=== PATIENT | female | born 1940 | race Caucasian/White ===

== ENCOUNTER 2016-08-30 15:44 | Inpatient (IN) | payer MEDICARE, OTHER ==
--- NOTE | ~2016-08-30 | CN ---
Consultation Report [facility] [address] [place]. [address] NAME: TATIANNA NGO : 38 STATUS : DIS IN PAT#: [id number] AGE: 75 ADM/REG DATE : 08/31/16 MR#: [id number] REPORT SERV DATE: 09/01/16 DICTATED BY: VELMA MORENO DATE: 09/01/16 REPORT STATUS : Draft TRANSCRIBED BY: MODL DATE: 09/01/16 CONSULTATION DATE OF CONSULTATION: 09/01/2016 CHIEF COMPLAINT: Chest pain, decreased exercise tolerance, and fatigue HISTORY OF PRESENT ILLNESS: This is a very pleasant 75-year-old female, who presented to the emergency room on 08/30/2016 with chest discomfort while performing physical therapy regarding her neck pain. Symptoms occurred only that day, but states that she has had progressive fatigue over the past month. She had a nuclear stress test on the same day that was abnormal. She ended up having coronary arteriogram on 09/01/2016 which revealed severe bifurcation stenosis involving the first diagonal and proximal LAD, uzoduqvs-vz-bmgoil distal LAD stenosis, yfrovvru-gi-npipva ostial and proximal circumflex stenosis, and cpkf-it-gdwsjbvl RCA stenosis. Her LMCA showed 30% stenosis, proximal LAD 25 stenosis, with first diagonal lesion of 90% stenosis, proximal LAD 85% stenosis, mid LAD with 60% stenosis, left circumflex lesion on proximal at 60%, 40% left first obtuse marginal and 60% lesion on the proximal circumflex. There was 45% stenosis on the proximal RCA. The patient states that her fatigue is mainly with activity when she is doing her house work. She does notice that she has to take frequent rest breaks throughout the day. She states that she is not having any active chest pain, palpitations, dyspnea with rest, orthopnea, or unstable angina. She does have some mild dyspnea on exertion. PAST MEDICAL HISTORY: She has been diabetic for 10 years, well controlled Metformin with her most recent A1C at 5.5%; hypertension; hyperlipidemia; childhood asthma; and frequent UTIs. PAST SURGICAL HISTORY: Includes two C-sections, appendectomy, lumbar spine surgery, cataract surgery, and tonsillectomy. SOCIAL HISTORY: She is and retired teacher. She used to smoke but quit in 1980. She smoked for approximately 10 years. She does use alcohol on occasion. She denies illicit drug use. FAMILY HISTORY: Her mother at age 100 and had a history of hypertension and breast cancer. Her father in his 60s due to pesticide toxicity. She has no siblings. ALLERGIES: SHE IS ALLERGIC TO SULFA. MEDICATIONS: Home medications include: 1. Amlodipine 5 mg once daily. 2. Atenolol 100 mg daily. 3. Lasix 20 mg daily. 4. Losartan 50 mg daily. 5. Metformin 500 mg daily. Consultation Report [address] [place]. [address] NAME: TATIANNA NGO : [id number] STATUS : DIS IN PAT#: [id number] AGE: 75 ADM/REG DATE : 08/31/16 MR#: [id number] REPORT SERV DATE: 09/01/16 DICTATED BY: VELMA MORENO DATE: 09/01/16 REPORT STATUS : Draft TRANSCRIBED BY: WALT DATE: 09/01/16 6. Prilosec 20 mg. 7. Potassium 20 mEq. 8. Crestor 5 mg daily. REVIEW OF SYSTEMS: GENERAL: She denies any recent weight loss or changes in appetite, fever, chills, or night sweats. SKIN: No rashes or itching. HEAD: No trauma or visual changes. EYES: She does wear glasses. EARS: No hearing loss, discharge, or tenderness. NOSE: No rhinorrhea, allergies, epistaxis. MOUTH: No bleeding, sores, hoarseness, or sore throat. CARDIAC: No palpitations, paroxysmal nocturnal dyspnea, orthopnea, murmur, or unstable angina. RESPIRATORY: No shortness of breath except on exertion. No emphysema, bronchitis, or recent episodes of pneumonia. GI: No previous symptoms of nausea, vomiting, diarrhea, abdominal pain or appetite changes. URINARY: No complaints of incontinence, hematuria, or dysuria. VASCULAR: She denies edema, claudication, or varicose veins. MUSCULOSKELETAL: She does have limited range of motion in her neck. No assistive devices, tremors, or recent falls. HEMATOLOGY: No bruising or bleeding. ENDOCRINE: No polydipsia, polyphagia, or polyuria. She does have a history of diabetes. PSYCHIATRIC: She denies anxiety or depression. PHYSICAL EXAMINATION: GENERAL: She is a very pleasant 75-year-old white female who appears to be in good health with no evidence of poor hygiene, or failure to thrive. VITAL SIGNS: She has sinus bradycardia at a rate of 53, blood pressure 142/76, temperature 98.7, respiratory rate 16. She is 97% on room air. She weighs 57 kg and is 5 feet tall. SKIN: There are no evidences of any scars, rashes, bruises, and/or ulcerations. HEENT: Head is atraumatic and normocephalic. She has round, equal, and reactive pupils with no discharge or visual deficits. She does wear glasses. Her ears are symmetrical with no tenderness, discharge, or inflammation. Nose is at midline with no evidence of reddened or erythemic mucosa. She does not have any sinus tenderness. She does not have a deviated septum. Mouth, she does not appear to have missing teeth, ulcerations. She had pink moist mucosa. NECK: There is no tracheal deviation or thyroid mass. HEART: She has sinus bradycardia, regular rate and rhythm with no evidence of murmurs, gallops, clicks, or precordial movements. LUNGS: Clear to auscultation with equal rise of the chest and is symmetrical. ABDOMEN: She has active bowel sounds, her abdomen is soft, nontender with no evidence of masses or hepatic or splenic enlargement. MUSCULOSKELETAL: She does not appear to have any limited range of motion other than her neck Consultation Report [place] [id number] [facility] [place]. [address] NAME: TATIANNA NGO : [id number] STATUS : DIS IN PAT#: [id number] AGE: 75 ADM/REG DATE : 08/31/16 MR#: [id number] REPORT SERV DATE: 09/01/16 DICTATED BY: VELMA MORENO DATE: 09/01/16 REPORT STATUS : Draft TRANSCRIBED BY: MODL DATE: 09/01/16 due to pain and degenerative disk. There is no muscle atrophy, there is no unsteady gait, and there is no joint redness, swelling, or tenderness noted. VASCULAR: She does not have any pedal edema. She has +2 bilateral pedal pulses. She does not have carotid bruit. LYMPHATIC: There is no evidence of lymph node enlargement, tenderness, or immobility. NEUROLOGICAL: Cranial nerves II through XII were assessed and intact. LABORATORY DATA: Her labs obtained today show a white blood cell count of 12.3, hemoglobin 10.9, hematocrit 32.7, platelet count 287. Her BMP shows sodium of 138, potassium 3.9, chloride 106, CO2 of 25, BUN 13, creatinine 0.7, and glucose 98. Her A1C is 5.5%. She had a carotid ultrasound today showing category 1 which is less than 50% bilateral carotid artery stenosis. She also had an echocardiogram today that showed normal LV size and systolic function. Estimated ejection fraction 55%. No regional wall motion abnormality identified. Mild diastolic dysfunction. Normal RV size and systolic function. Mild aortic valve stenosis with mean pressure grading of 10 mmHg. ASSESSMENT AND PLAN: 1. Coronary artery disease. I spent time with both the patient and the and explained the indications for open sternotomy, coronary artery bypass grafting. I explained the postoperative and intraoperative risk of the procedures which include stroke, CA, atrial fibrillation, wound infection, pneumonia, and blood clots, and interventions that are taken to prevent these complications. She is not on any aspirin or blood thinners at this time. I will discuss her case with Dr. Moreno, but plan would be for her to be able to go home today with the understanding that she is to return to the hospital if she developed unstable angina or worsening shortness of breath. Plan would be for her to have a CAB with [facility], and [facility] on Sunday09/06/[address] Velma Moreno. The patient will have her preop testing and assessment done while in she is in the hospital today. Her STS score is estimated at 13.7%. 2. Hypertension, the patient is to continue her home medications as prescribed. She will need to hold her losartan 24 hours prior to the procedure. These instructions will be on her discharge paperwork. 3. Diabetes, A1C is 5.5% and she demonstrates of adequate control of her diabetes. She understands that she will to hold her Glucophage or metformin 48 hours prior to her procedure. 4. Hyperlipidemia. She will continue her Crestor 5 mg daily as prescribed. We appreciate the consultation from Cardiology to participate in the care of this patient. DICTATED BY: YAMILETH Wallace/WALT Velma Moreno M.D. Consultation Report [facility] [address] [place]. [address] NAME: TATIANNA NGO : [id number] STATUS : DIS IN PAT#: [id number] AGE: 75 ADM/REG DATE : 08/31/16 MR#: [id number] REPORT SERV DATE: 09/01/16 DICTATED BY: VELMA MORENO DATE: 09/01/16 REPORT STATUS : Draft TRANSCRIBED BY: MODL DATE: 09/01/16 / [id number] CC: Samuel Waddell NP
--- NOTE | ~2016-08-30 | HP ---
History And Physical [place] [id number] [facility] [place]. [address] NAME: TATIANNA NGO : [id number] STATUS : ADM Pito PAT#: [id number] AGE: 75 ADM/REG DATE : 08/30/16 MR#: [id number] REPORT SERV DATE: 08/30/16 DICTATED BY: MO PADILLA DATE: 08/30/16 REPORT STATUS : Draft TRANSCRIBED BY: MODL DATE: 08/30/16 DATE OF ADMISSION: 08/30/2016 IDENTIFYING DATA: A 75-year-old white female, whose PCP is nurse practitioner, Flor Peck. CHIEF COMPLAINT: Chest pain. HISTORY OF PRESENT ILLNESS: This history of present illness is obtained by talking directly with the patient as well as with her at bedside, and I spoke on the phone with [facility] and I reviewed the records that they sent with her. The patient was in physical therapy for neck pain. She developed some anterior chest pain. She characterizes it as both sharp and pressure like. It seemed to increase with physical movement. It radiated to her neck. It came on while doing her exercises. It did not stop with resting. It lasted more than 15 minutes, but close to 15 minutes. No associated nausea or shortness of breath. She states about four years ago she had some chest pain, went to the same the ER, they did an evaluation, told her they thought it was gas. She was hospitalized at [facility] on 05/19/2016 through 05/20/2016 for some chest discomfort and hypertension. At that time, they did an echocardiogram showing mild aortic stenosis and did some cardiac enzymes, chest x-ray, and a CT of her brain. She also states she went to an emergency room at [facility] some time this year for some chest pain as well. Also when she went to [facility] Emergency Room, it was also related to a temporal headache. REVIEW OF SYSTEMS: She states she has been having back and neck pain. She felt lightheaded in physical therapy today. She has been a bit unsteady on her feet. She has had three falls over the last four years. No serious injuries. She states she had a UTI 10 days ago. She was given Bactrim. She developed itching and blistering on her lips, took Benadryl. She also had dizziness and vertigo at that time. She denies any current fever, sore throat, cough, abdominal pain, nausea, vomiting, diarrhea, rectal bleeding, melena, dysuria, peripheral edema, rash, headaches, anorexia, or weight change. ALLERGIES: SHE IS ALLERGIC TO SULFA, BUT NO OTHER MEDICINE SHE RECALLS. PAST MEDICAL HISTORY: She denies any history of COPD, heart disease, stroke, seizure, peptic ulcer or biliary tract disease, liver disease, chronic kidney disease, kidney stones, thyroid disease, cancer, pulmonary embolism, or deep vein thrombosis. She has had childhood asthma and adult allergies. She has had hypertension and hyperlipidemia. She has also had diabetes mellitus type 2. The diabetes, she has had for about 15 years. She does not have any significant peripheral neuropathy. She has had frequent UTIs. She has had spinal stenosis. She has some dementia, on medical therapy. She has a history of reflux. She had previous sleep apnea. She wore CPAP, but she lost weight down from 190 to 115 pounds and states they told her she did not need to wear it History And Physical [address] [address] NAME: TATIANNA NGO : [id number] STATUS : ADM Pito PAT#: [id number] AGE: 75 ADM/REG DATE : 08/30/16 MR#: [id number] REPORT SERV DATE: 08/30/16 DICTATED BY: MO PADILLA DATE: 08/30/16 REPORT STATUS : Draft TRANSCRIBED BY: WALT DATE: 08/30/16 after that. HOME MEDICATIONS: Lasix 20 mg daily, atenolol 100 mg daily, Norvasc 5 mg daily (she has not had her atenolol or amlodipine since yesterday), Aricept 10 mg at bedtime, nitrofurantoin 100 mg b.i.d., metformin 500 mg daily at bedtime, Crestor 5 mg daily, losartan 50 mg daily, aspirin 81 mg daily, and potassium 20 mEq daily. PAST SURGICAL HISTORY: She has had two C sections, one of them included an appendectomy. She has had a lumbar spine surgery. She had tonsillectomy and cataract surgery. SOCIAL HISTORY: She is . 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 She quit smoking cigarettes in 1980. She smoked a pack per day. She drinks only a very occasional glass of wine. She lives with her . She walks without any assistive device. FAMILY HISTORY: Mother at 100 years of age, had hypertension and breast cancer. Father in his 60s and they think he might have had malathion toxicity from spraying a pesticide. She is an only child. DIAGNOSTIC DATA: EKG done at 0938 hours today at [facility] reveals sinus bradycardia, otherwise, normal per my interpretation. Another EKG at 0945 hours has a baseline motion artifact, but otherwise, the same with some sinus bradycardia. Troponin drawn at 0958 hours at [facility] less than 0.02, [facility]. Sodium 138, potassium 3.9, chloride 100, CO2 is 30, BUN 11, and creatinine 0.7. The rest of the CMP is normal. Lipase was 108. Chest x-ray interpreted by their radiologist as normal other than some mild aortic calcification and tortuosity. White count 10.8, hemoglobin 12.6, and platelets 327,000. Echocardiogram report from 05/19/2016 showed normal left ventricular size and ejection fraction of 75%, left atrium at 3.8 cm, and mild aortic stenosis. PHYSICAL EXAMINATION: VITAL SIGNS: Temp is 97.7, pulse 55, respirations 18, blood pressure 160/70, and O2 saturation is 100% on room air. GENERAL: A well-developed, older female, who at this time appears in no acute distress. HEENT: Head is atraumatic. Pupils are equal, round, and reactive to light. Extraocular motions are intact. No scleral icterus noted. Ear canals externally unremarkable. No inflammatory changes and normal hearing bilaterally. Nose, noninflamed externally. Septum midline. Nares patent. Mouth is moist. Good gag. No redness of the throat, gums, or lips. NECK: Supple. No lymph node or thyroid enlargement. The carotids have good pulses. No bruits. LUNGS: Clear. Good air flow. No wheezes. No rhonchi. Normal respiratory effort. HEART: Regular, but bradycardic. No murmur, gallop, click, or rub. ABDOMEN: Bowel sounds positive. Soft, nondistended, and nontender. No masses. No organomegaly. EXTREMITIES: Warm. Good pulses. No clubbing. No cyanosis. No edema. No actively inflamed skin or joints. She has onychomycosis of her toenails. History And Physical [address] [place]. [address] NAME: TATIANNA NGO : [id number] STATUS : ADM Pito PAT#: [id number] AGE: 75 ADM/REG DATE : 08/30/16 MR#: [id number] REPORT SERV DATE: 08/30/16 DICTATED BY: MO PADILLA DATE: 08/30/16 REPORT STATUS : Draft TRANSCRIBED BY: WALT DATE: 08/30/16 NEUROLOGIC: She is alert. She is oriented. She is cooperative. She has some definite deficits in her short-term memory. Her motor strength is 4/5 in all four extremities. No Babinski. No clonus noted. Cranial nerves II through XII are grossly normal. ASSESSMENT: 1. Chest pain. Differential diagnosis:. a. Coronary artery disease. b. Pulmonary embolism. c. Reflux. d. Neoplasm, least likely. 2. Hypertension. 3. Diabetes mellitus type 2 for 15 years. 4. Mild aortic stenosis. 5. Hyperlipidemia. 6. Frequent urinary tract infections. 7. Chronic spine pain. 8. Senile dementia. 9. History of previous sleep apnea, now off CPAP after weight loss. 10.History of reflux. PLAN: 1. Observation on telemetry. 2. Get followup troponin. We will also check a D-dimer. If it is elevated, we will do a CTA of the chest. If the D-dimer and the troponins are normal, then we will get a nuclear stress test. The patient and updated at the bedside at this time. RSG/MODL Mo Padilla M.D. / [id number] CC: Samuel Waddell
--- NOTE | ~2016-08-30 | DS ---
Discharge Summary [facility] [address] [place]. [address] NAME: TATIANNA NGO : [id number] STATUS : ADM Pito PAT#: [id number] AGE: 75 ADM/REG DATE : 08/30/16 MR#: [id number] REPORT SERV DATE: 08/31/16 DICTATED BY: MO PADILLA DATE: 08/31/16 REPORT STATUS : Draft TRANSCRIBED BY: MODL DATE: 08/31/16 ADMISSION DATE: 08/30/2016 DISCHARGE DATE: 08/31/2016 DISCHARGE DIAGNOSES: 1. Chest pain. 2. Hypertension. 3. Diabetes mellitus type 2 for 15 years with current A1c 5.5%. 4. Mild aortic stenosis. 5. Frequent urinary tract infections. 6. Chronic spine pain. 7. Mild senile dementia. 8. History of reflux. 9. Previous obstructive sleep apnea, resolved with weight loss. HISTORY: The patient was at physical therapy because of her neck pain. While there were experienced anterior chest pain, somewhat sharp, somewhat pressure-like, lasted 15 minutes. No associated nausea or shortness of breath. She was taken to the emergency room there at [facility], and they did a chest x-ray that was unremarkable. They did an EKG that was unremarkable. Her two sets of troponins that were unremarkable, but they wanted her to where she can get a nuclear stress, so she asked to be referred here and we agreed for her transfer. Here the patient had EKG with only mild sinus bradycardia. Her cardiac enzymes were normal. Her D-dimer was normal. She had no further chest pain. She is scheduled for a nuclear stress test this morning. If those results were normal she will go home and follow up with her PCP within the next week. DISCHARGE MEDICATIONS: 1. Aspirin 81 mg daily. 2. Aricept 10 mg at bedtime. 3. Losartan 50 mg daily. 4. Nitrofurantoin 100 mg b.i.d. (she was already on this). 5. Tylenol 650 mg q.6 hours p.r.n. pain. 6. Amlodipine 5 mg daily. 7. Tenormin 100 mg daily. 8. Metformin 500 mg daily. 9. Crestor 5 mg daily. 10.Omeprazole 20 mg daily. 11.KCl 20 mEq daily. 12.Furosemide 20 mg daily. DICTATED BY: Mo Padilla M.D. Discharge Summary [facility] [address] [address] NAME: TATIANNA NGO : [id number] STATUS : ADM Pito PAT#: [id number] AGE: 75 ADM/REG DATE : 08/30/16 MR#: [id number] REPORT SERV DATE: 08/31/16 DICTATED BY: MO PADILLA DATE: 08/31/16 REPORT STATUS : Draft TRANSCRIBED BY: WALT DATE: 08/31/16 RS/WALT Mo Padilla M.D. / [id number] CC: Samuel Waddell NP
--- NOTE | ~2016-08-30 | DS ---
Discharge Summary [facility] [address] [place]. [address] NAME: TATIANNA NGO : 38 STATUS : DIS IN PAT#: [id number] AGE: 75 ADM/REG DATE : 08/31/16 MR#: [id number] REPORT SERV DATE: 09/04/16 DICTATED BY: MO PADILLA DATE: 09/02/16 REPORT STATUS : Draft TRANSCRIBED BY: MODL DATE: 09/02/16 ADMISSION DATE: 08/30/2016 DISCHARGE DATE: 09/01/2016 DISCHARGE DIAGNOSES: 1. Unstable angina pectoris. 2. Severe multivessel coronary artery disease. 3. Hypertension. 4. Diabetes mellitus type 2 with A1c 5.5%. 5. Mild aortic stenosis. 6. Previous frequent urinary tract infections. 7. Chronic spine pain. 8. Mild senile dementia. 9. Gastroesophageal reflux disease. 10.Previous obstructive sleep apnea, resolved with weight loss. HISTORY: This patient was at physical therapy because of her neck pain, had anterior chest pain that was sharp and pressure-like, lasting 15 minutes. No associated nausea or shortness of breath. She went to the emergency room there at [facility] where a chest x- ray was unremarkable, an EKG was unremarkable, and two sets of troponins were normal. She was referred to our inpatient facility here for nuclear stress test and further cardiac evaluation. The patient's EKG had only mild sinus bradycardia. Her cardiac enzymes were normal. Her D- dimer was normal. She had no further chest pain initially and went for a nuclear stress test. The nuclear stress test images were normal, but she had chest pain during the exercise so because of this and her risk factors, I asked Cardiology to see the patient, and Dr. Andrea Miranda of [facility] saw the patient and agreed with her risk factors that she should have a cardiac catheterization. The patient underwent a heart catheterization on 08/31/2016 showing severe multivessel disease with preserved left ventricular ejection fraction, and she was referred to cardiothoracic surgeon, Dr. Moreno, for evaluation for coronary artery bypass grafting. Dr. Moreno team met with her on 09/01/2016. They did feel that she was a good candidate for coronary artery bypass grafting but since she was stable and it was Sunday and they were not going to plan for her surgery within the next few days, they made a plan with her to be discharged home to come back on 09/06/[address] Moreno to do a coronary artery bypass with transesophageal echo. They are recommending that she hold her losartan for 24 hours prior to the procedure and to hold her metformin for 48 hours prior to the procedure. DISCHARGE MEDICATIONS: 1. Aspirin 81 mg daily. 2. Aricept 10 mg daily. 3. Losartan 50 mg daily, but she will hold it 24 hours prior to procedure. 4. Nitrofurantoin 100 mg b.i.d. She was on this for a urinary tract infection Discharge Summary [place] [id number] [facility] [place]. [address] NAME: TATIANNA NGO : [id number] STATUS : DIS IN PAT#: [id number] AGE: 75 ADM/REG DATE : 08/31/16 MR#: [id number] REPORT SERV DATE: 09/04/16 DICTATED BY: OM PADILLA DATE: 09/02/16 REPORT STATUS : Draft TRANSCRIBED BY: WALT DATE: 09/02/16 prehospitalization. 5. Tylenol 650 q.6 hours p.r.n. pain or fever. 6. Amlodipine 5 mg daily. 7. Tenormin 100 mg daily. 8. Metformin 500 mg daily, but she will hold it 48 hours pre-surgery. 9. Crestor 5 mg daily. 10.Omeprazole 20 mg daily. 11.Furosemide 20 mg daily. 12.KCl 20 mEq daily. DICTATED BY: Mo Padilla M.D. RSJeana/WALT Mo Padilla M.D. / [id number] CC: Samuel Waddell M.D. Daniel Moreno M.D. LANDON CRISTINA NP
--- NOTE | ~2016-08-30 | CN ---
Consultation Report [facility] [address] [place]. [address] NAME: TATIANNA FLORES : 38 STATUS : ADM Pito PAT#: [id number] AGE: 75 ADM/REG DATE : 08/30/16 MR#: [id number] REPORT SERV DATE: 08/31/16 DICTATED BY: ANDREA MIRANDA DATE: 08/31/16 REPORT STATUS : Draft TRANSCRIBED BY: MODEmily DATE: 08/31/16 CONSULTATION DATE OF CONSULTATION: REASON FOR CONSULTATION: Mrs. Tatianna Flores is a 75-year-old female, who is referred for abnormal stress test. HISTORY OF PRESENT ILLNESS: Mrs. Flores was in physical therapy at [facility] for neck discomfort. As she tried to do her activity, she developed a pressure-like sensation that seemed to be a crescendo with continuing exercise and became less impressive with rest. It lasted close to 30 minutes. There were no associated radiation of the pain, nausea, vomiting, diaphoresis, or shortness of breath. This abated. She came here and showed no changes under EKG. Cardiac enzymes were negative, but upon doing a treadmill, the discomfort was reproduced. REVIEW OF SYSTEMS: She is apparently hospitalized at [facility], 05/19/2016, for chest discomfort. At that time, workup was negative. She did not have an arteriogram at that time. She has not had this chest pain before. She has not had palpitations, syncope, presyncope, or lower extremity edema. PAST MEDICAL HISTORY: 1. Type 2 diabetes for approximately 10 years. 2. She discontinued cigarette smoking after 10 years of smoking in 1980. 3. Hypertension for 10 to 12 years. 4. Hypercholesterolemia for 10 to 12 years, on atorvastatin 10 mg. SOCIAL HISTORY: She is . She does not smoke. She does occasional alcohol. She primarily active with her housework. FAMILY HISTORY: Negative for early heart disease. PHYSICAL EXAMINATION: VITAL SIGNS: Blood pressure is 161/71, pulse 77, and she is afebrile. GENERAL: Resting comfortably, nutritional status appears adequate. EYES: PERRLA. LUNGS: No labored use of accessory muscles. Without rales or wheezes. COR: PMI is not displaced. No thrills or heaves. NL S1 and S2. No S3, murmur, click or rub. PULSES: Carotids without bruits. ABD: +BS, nontender. EXT: No cyanosis, clubbing or edema. SKIN: No petechiae. Consultation Report [facility] [id number] [place]. [address] NAME: TATIANNA FLORES : 38 STATUS : ADM Pito PAT#: [id number] AGE: 75 ADM/REG DATE : 08/30/16 MR#: [id number] REPORT SERV DATE: 08/31/16 DICTATED BY: ANDREA MIRANDA DATE: 08/31/16 REPORT STATUS : Draft TRANSCRIBED BY: WALT DATE: 08/31/16 NEURO: Alert and oriented. Does not appear anxious or depressed. LABORATORY EVALUATION: 1. EKG shows sinus rhythm without acute changes. 2. Renal function is normal at 0.8. 3. Troponins are negative. 4. Ward protocol stage II did reproduce the chest discomfort, but showed no EKG changes or imaging changes. It was read as intermediate. ASSESSMENT: Intermediate stress test with significant risk factors of diabetes, hypertension, cigarette smoking, and hypercholesterolemia with intermediate risk stress test. We will proceed with cardiac catheterization. SHANELL/WALT Andrea Miranda M.D. / [id number] CC: Samuel Waddell NP
[2016-08-30] MEDS ORDERED: ARICEPT10 PO (21:27)
[2016-08-30] MEDS ORDERED: ATEN100 PO (21:27)
[2016-08-30] MEDS ORDERED: NORV5 PO (21:27)
[2016-08-30] MEDS ORDERED: COZ50 PO (21:28)
[2016-08-30] MEDS ORDERED: GLUCPH PO (21:28)
[2016-08-30] MEDS ORDERED: BACDS PO (21:29)
[2016-08-30] MEDS ORDERED: CRESTOR5 MG PO (21:29)
[2016-08-30] MEDS ORDERED: KLOR-CON M2020 MEQ PO (21:30)
[2016-08-30] MEDS ORDERED: PRILO PO (21:30)
[2016-08-30] MEDS ORDERED: L20 PO (21:31)
[2016-08-31 05:07] LABS: BUN (BLOOD UREA NITROGEN) 18 MG/DL (6-23); CALCIUM, SERUM 8.9 MG/DL (8.5-10.4); CHLORIDE, SERUM 102 MMOL/L (96-112); CO2 (CARBON DIOXIDE) 30 MMOL/L (24-34); CREATININE 0.81 MG/DL (0.55-1.02); GFR AFRICAN AMERICAN 81 ML/MIN (>=60); GFR NON AFRICAN AMERICAN 70 ML/MIN (>=60); GLUCOSE, SERUM 94 MG/DL (60-99); POTASSIUM, SERUM 3.6 MMOL/L (3.5-5.3); SODIUM, SERUM 137 MMOL/L (135-148); TROPONIN I <0.02 NG/ML (<0.05)
[2016-08-31 05:19] LABS: BASOPHILS 0.7 %; BASOPHILS ABSOLUTE 0.06 10/3/uL (0.0-0.16); EOSINOPHILS ABSOLUTE 1.28 10/3/uL (0.0-0.53); HEMATOCRIT 36.4 % (36.0-48.0); HEMOGLOBIN 12.5 g/dL (12.0-16.0); IMMATURE GRANULOCYTES 0.4 %; IMMATURE GRANULOCYTES ABSOLUTE 0.03 10/3/uL (0.0-0.11); LYMPHOCYTES 21.4 %; LYMPHOCYTES ABSOLUTE 1.83 10/3/uL (0.67-4.30); MEAN CORPUS HGB CONC 34.3 g/dL (32.0-36.0); MEAN CORPUSCULAR HEMOGLOB 30.2 pg (26.0-34.0); MEAN CORPUSCULAR VOLUME 87.9 fL (80-100); MEAN PLATELET VOLUME 9.4 fL (9.2-13.0); MONOCYTES 7.5 %; MONOCYTES ABSOLUTE 0.64 10/3/uL (0.21-1.20); NEUTROPHILS ABSOLUTE 4.71 10/3/uL (2.02-8.40); PLATELET COUNT 292 10/3/uL (150-400); RBC DISTRIBUTION WIDTH 13.1 % (12.0-16.0); RED CELL COUNT 4.14 10/6/uL (4.0-5.6); WHITE BLOOD CELLS 8.6 10/3/uL (4.5-10.5)
[2016-08-31 05:23] LABS: MANUAL DIFF NO %
[2016-08-31 14:38] LABS: CHOL/HDL RATIO(NOT ORDER) 3.3 (0-5); CHOLESTEROL 190 MG/DL (< 200); HDL CHOLESTEROL 58 MG/DL (> 49); LDL CHOLESTEROL 74 MG/DL (< 130); NON-HDL CHOLESTEROL 132 MG/DL (< 160); TRIGLYCERIDE 293 MG/DL (< 150)
[2016-09-01 05:05] LABS: CALCIUM, SERUM 8.2 MG/DL (8.5-10.4); CHLORIDE, SERUM 106 MMOL/L (96-112); CREATININE 0.76 MG/DL (0.55-1.02); GFR AFRICAN AMERICAN 88 ML/MIN (>=60); GFR NON AFRICAN AMERICAN 76 ML/MIN (>=60); GLUCOSE, SERUM 98 MG/DL (60-99); POTASSIUM, SERUM 3.9 MMOL/L (3.5-5.3); SODIUM, SERUM 138 MMOL/L (135-148)
[2016-09-01 05:07] LABS: BUN (BLOOD UREA NITROGEN) 13 MG/DL (6-23); CO2 (CARBON DIOXIDE) 25 MMOL/L (24-34)
[2016-09-01 05:08] LABS: BASOPHILS 0.2 %; BASOPHILS ABSOLUTE 0.03 10/3/uL (0.0-0.16); EOSINOPHILS ABSOLUTE 0.98 10/3/uL (0.0-0.53); HEMATOCRIT 32.7 % (36.0-48.0); HEMOGLOBIN 10.9 g/dL (12.0-16.0); IMMATURE GRANULOCYTES 0.2 %; IMMATURE GRANULOCYTES ABSOLUTE 0.03 10/3/uL (0.0-0.11); LYMPHOCYTES 8.1 %; MANUAL DIFF NO %; MEAN CORPUS HGB CONC 33.3 g/dL (32.0-36.0); MEAN CORPUSCULAR HEMOGLOB 29.4 pg (26.0-34.0); MEAN CORPUSCULAR VOLUME 88.1 fL (80-100); MEAN PLATELET VOLUME 9.2 fL (9.2-13.0); MONOCYTES 6.1 %; MONOCYTES ABSOLUTE 0.75 10/3/uL (0.21-1.20); NEUTROPHILS 77.4 %; NEUTROPHILS ABSOLUTE 9.48 10/3/uL (2.02-8.40); PLATELET COUNT 287 10/3/uL (150-400); RBC DISTRIBUTION WIDTH 13.4 % (12.0-16.0); RED CELL COUNT 3.71 10/6/uL (4.0-5.6); WHITE BLOOD CELLS 12.3 10/3/uL (4.5-10.5)
[2016-09-01] MEDS ORDERED: ARICEPT10 PO (14:40)
[2016-09-01] MEDS ORDERED: MACROBID PO (14:40)
[2016-09-04] MEDS ORDERED: MULTIPLE VIT PO (16:50)
[2016-09-04] MEDS ORDERED: [UNRECOGNIZED DRUG - OTHER] PO (16:51)
[2016-09-04] MEDS ORDERED: ASAB PO (16:53)
[2016-09-04] MEDS ORDERED: NTG150 SL (16:53)
== END 2016-09-01 15:48 | disposition home or self-care (01) | DRG 287 ==
LOC: CDU1 15:44 → CDU2 15:47 → 5NO 09-01 06:30
PROVIDERS: Hospitalist
PROC: 4A023N7 Measurement of Cardiac Sampling and Pressure, Left Heart, Percutaneous Approach (ICD-10-PCS; principal; 2016-08-31)
PROC: B2111ZZ Fluoroscopy of Multiple Coronary Arteries using Low Osmolar Contrast (ICD-10-PCS; 2016-08-31)
PROC: B2151ZZ Fluoroscopy of Left Heart using Low Osmolar Contrast (ICD-10-PCS; 2016-08-31)
DX: I25.110 Atherosclerotic heart disease of native coronary artery with unstable angina pectoris (principal); F03.90 Unspecified dementia, unspecified severity, without behavioral disturbance, psychotic disturbance, mood disturbance, and anxiety; E11.9 Type 2 diabetes mellitus without complications; I10 Essential (primary) hypertension; I35.0 Nonrheumatic aortic (valve) stenosis; Z87.440 Personal history of urinary (tract) infections; K21.9 Gastro-esophageal reflux disease without esophagitis; E78.00 Pure hypercholesterolemia, unspecified; Z79.84 Long term (current) use of oral hypoglycemic drugs
CPT/HCPCS: 78452; 80048; 80061; 82962; 83036; 83735; 84484; 85025; 85379; 93005; 93017; 93306; 93458; 93880; 99152; 99153; A9270-GY; A9502; C1769; C1887; C1894; J0360; J2250; J2405; J3010; Q9967

== ENCOUNTER 2016-09-06 05:53 | Inpatient (IN) | payer MEDICARE, OTHER ==
[2016-09-05 15:33] LABS: BASOPHILS 0.7 %; BASOPHILS ABSOLUTE 0.09 10/3/uL (0.0-0.16); EOSINOPHILS 9.4 %; HEMATOCRIT 37.8 % (36.0-48.0); HEMOGLOBIN 12.5 g/dL (12.0-16.0); IMMATURE GRANULOCYTES 0.2 %; IMMATURE GRANULOCYTES ABSOLUTE 0.03 10/3/uL (0.0-0.11); LYMPHOCYTES 11.8 %; MEAN CORPUS HGB CONC 33.1 g/dL (32.0-36.0); MEAN CORPUSCULAR HEMOGLOB 29.3 pg (26.0-34.0); MEAN CORPUSCULAR VOLUME 88.5 fL (80-100); MEAN PLATELET VOLUME 9.5 fL (9.2-13.0); MONOCYTES 5.8 %; MONOCYTES ABSOLUTE 0.74 10/3/uL (0.21-1.20); NEUTROPHILS 72.1 %; NEUTROPHILS ABSOLUTE 9.17 10/3/uL (2.02-8.40); PLATELET COUNT 335 10/3/uL (150-400); RBC DISTRIBUTION WIDTH 13.1 % (12.0-16.0); RED CELL COUNT 4.27 10/6/uL (4.0-5.6); WHITE BLOOD CELLS 12.7 10/3/uL (4.5-10.5)
[2016-09-05 15:34] LABS: MANUAL DIFF NO %
[2016-09-05 15:40] LABS: INTERNATIONAL NORMAL RATI 1.1 UNITS (-); PROTIME (NOT ORD) 13.8 SEC (12.0-14.5)
[2016-09-05 17:01] LABS: % IRON SAT 9 % (20-50); ALBUMIN 3.7 G/DL (3.5-5.0); ALKALINE PHOSPHATASE 77 U/L (45-117); CHLORIDE, SERUM 100 MMOL/L (96-112); CO2 (CARBON DIOXIDE) 27 MMOL/L (24-34); GFR AFRICAN AMERICAN 71 ML/MIN (>=60); GFR NON AFRICAN AMERICAN 62 ML/MIN (>=60); GLOBULIN 3.8 G/DL (2.5-4.1); GLUCOSE, SERUM 105 MG/DL (60-99); IRON BINDING CAPACITY 370 MCG/DL (225-410); IRON, SERUM 35 MCG/DL (35-150); POTASSIUM, SERUM 3.6 MMOL/L (3.5-5.3); SGOT(AST) 15 U/L (5-40); SGPT(ALT) 21 U/L (5-65); SODIUM, SERUM 138 MMOL/L (135-148); TOTAL BILIRUBIN 0.6 MG/DL (0-1.2); TOTAL PROTEIN 7.5 G/DL (6.0-8.5)
[2016-09-05 17:02] LABS: BUN (BLOOD UREA NITROGEN) 9 MG/DL (6-23)
--- NOTE | ~2016-09-06 | OP ---
Record Of Operation [facility] [address] [place]. [address] NAME: TATIANNA NGO : 38 STATUS : DIS IN PAT#: [id number] AGE: 75 ADM/REG DATE : 09/06/16 MR#: [id number] REPORT SERV DATE: 09/11/16 DICTATED BY: VELMA MORENO DATE: 09/07/16 REPORT STATUS : Draft TRANSCRIBED BY: MODL DATE: 09/07/16 DATE OF PROCEDURE: 09/06/2016 PREOPERATIVE DIAGNOSES: 1. Coronary artery disease with angina. 2. Type 2 ejv-ngpphlg-mmgskwsfd diabetes mellitus. 3. Hypertension. 4. Hyperlipidemia. 5. Obesity. POSTOPERATIVE DIAGNOSES: 1. Coronary artery disease with angina. 2. Type 2 tcy-qzaecjg-prmlyldnn diabetes mellitus. 3. Hypertension. 4. Hyperlipidemia. 5. Obesity. PROCEDURES PERFORMED: 1. Coronary artery bypass grafting x4, left internal mammary artery placed to the left anterior descending, reverse saphenous vein graft placed to the first diagonal, reverse saphenous vein graft placed to the first obtuse marginal, reverse saphenous vein graft placed to the posterior descending artery. 2. Endoscopic vein harvest to saphenous vein from the right leg. 3. Transesophageal echocardiography. ASSISTANTS: Shadi Lacy, Abril Reid, and Andres Canales. ANESTHESIA: General with Dr. Galeano. MAINTENANCE AND OPERATIONS SUPERVISOR: Dr. Andrea Miranda. PRIMARY CARE: Flor Castaneda, nurse practitioner. INDICATIONS: This is a 75-year-old female, who came to the emergency room on the of this month with chest discomfort. She is having physical therapy for neck discomfort. She was admitted with unstable anginal-type symptoms and ruled out for myocardial infarction. She had a nuclear stress test that was abnormal and underwent a cardiac catheterization on the that demonstrated significant three-vessel coronary disease. Ventricular function was preserved with an ejection fraction of greater than 50%. We were asked to see the patient for possible coronary artery bypass grafting. She does have anginal episodes at home, and she has shortness of breath with exertion. After discussing the operations, its indication and risks, she wished to proceed. Preoperative STS risk of mortality is less than 1.5% and morbidity and mortality was estimated 13.7% and this was shared with the family. FINDINGS AT OPERATION: Record Of Operation [facility] [address] [facility]. [address] NAME: TATIANNA NGO : 38 STATUS : DIS IN PAT#: [id number] AGE: 75 ADM/REG DATE : 09/06/16 MR#: [id number] REPORT SERV DATE: 09/11/16 DICTATED BY: VELMA MORENO DATE: 09/07/16 REPORT STATUS : Draft TRANSCRIBED BY: MODL DATE: 09/07/16 1. Cross-clamp time 73 minutes. Total pump time 91 minutes. 2. The LAD was a 1.75 mm and heavily diseased vessel. A 2 mm IGNACIO was anastomosed to it with good runoff. 3. The first diagonal was 1.5 mm and moderately diseased. A 3 mm RSVG was anastomosed to it with good runoff. 4. The first obtuse marginal was 1.5 mm and mildly diseased. A 3.5 mm RSVG was anastomosed to it with good runoff. 5. The posterior descending artery was moderately diseased. It was 1.5 mm in diameter. A 3.5 mm RSVG was anastomosed to it with good runoff. 6. The vein quality was good and did match the targets well. All grafts had good Doppler signal at the end of the case. 7. NATALIE demonstrated good ventricular function. There was some calcification of the mitral anulus but no significant mitral insufficiency was noted. PATHOLOGIC SPECIMENS: None. DESCRIPTION OF PROCEDURE: The patient was brought to the operating suite. General anesthesia was induced and airway was secured with an endotracheal tube. Lines secured by Anesthesia. Brandon catheter was placed. The patient's chest, abdomen, groin, and legs prepped with Hibiclens and ChloraPrep and draped with Ioban sterile sheets. NATALIE probe was placed by Anesthesia and examination carried out as discussed above. The saphenous vein was harvested from the right leg using endoscopic technique. Briefly, the vein was cut directly down upon through a 2 cm incision and placed in the medial aspect of the right knee. Then, using VasoView trocars, the vessel was dissected from the surrounding subcutaneous tissue and fat. The side branches were identified, ligated, and divided with cautery. Once adequate length of vein had been dissected, a counter incision made up in the groin and in the lower leg. The vein was ligated and divided and brought through the knee incision. The vein quality was good and the leg wounds were made hemostatic and closed in layers of absorbable suture and skin closed in a subcuticular fashion. A midline sternal incision was made and the sternum opened with a saw. The left hemithorax was elevated and the endothoracic fascia was incised. Side branch of the KRITI were clipped and divided. Once the KIRTI was completely dissected, the patient was anticoagulated with heparin and chest tube placed in the left pleural cavity. The KIRTI was clipped and divided distally. There was good flow through the KIRTI and its pedicle was infiltrated with papaverine. Next, the Jason retractor was placed in the pericardium over from the innominate vein. The diaphragm was T'd and tacked to the side of the chest wall. Cannulation pursestring sutures were placed. Cannulation was carried out in routine manner. A retrograde cardioplegia cannula was placed in the coronary sinus. When all was in readiness, the patient was placed on cardiopulmonary bypass. The distal targets were marked out on the heart as described in the findings. All vessels were heavily calcified. Record Of Operation [facility] [id number] [facility] [place]. [address] NAME: TATIANNA NGO : 38 STATUS : DIS IN PAT#: [id number] AGE: 75 ADM/REG DATE : 09/06/16 MR#: [id number] REPORT SERV DATE: 09/11/16 DICTATED BY: VELMA MORENO DATE: 09/07/16 REPORT STATUS : Draft TRANSCRIBED BY: MODEmily DATE: 09/07/16 Heart support was placed. The aorta was cross clamped and an initial dose cold blood cardioplegia solution was given in a combination of antegrade and retrograde fashion, then in retrograde manner following proximal anastomoses. Following the first dose of cardioplegia, the heart was positioned for the first obtuse marginal graft. Arteriotomy was made. The vein graft was trimmed and anastomosed it with 7 0 Prolene. The vein graft was measured to the left side of the ascending aorta, where it was divided. We then positioned the heart for the PDA graft. Another arteriotomy was made. The vein graft was trimmed and anastomosed it with 7-0 Prolene. This vein graft was measured to the right side of the ascending aorta, where it was divided. Next, proximal ends of these two vein grafts were anastomosed to 4 mm punch aortotomies with 6-0 Prolene. Another dose of cardioplegia was given and we positioned the heart for the diagonal graft. Arteriotomy was made. The vein graft was trimmed and anastomosed it with 7-0 Prolene. This vein graft was measured to the ascending aorta, where it was divided and anastomosed to a 4 mm punch aortotomy with 6-0 Prolene. Another dose of cardioplegia was given. We positioned the heart for the LAD graft. Arteriotomy was made in the mid LAD, it was heavily diseased vessel. The KIRTI was brought out of the left chest through a notch in the pericardium over the pulmonary artery. The KIRTI was opened and anastomosed to the LAD with a running suture of 8-0 Prolene. The endothoracic fascia was tacked to the epicardium. The patient was placed in Trendelenburg. A final dose of warm blood cardioplegia was given in a retrograde fashion. Ventricular and atrial pacing wires were placed. Following the last dose of cardioplegia and de-airing of the aorta, the aortic cross-clamp was removed. The distal and proximal anastomoses were inspected and made hemostatic. Doppler demonstrated good flow through the grafts. The patient resumed a slow junctional rhythm and was paced in an AV sequential fashion at a rate of 80. Ventilations were begun. When the heart demonstrated good contractility, it was allowed to fill and eject. When deairing was completed, the patient was taken out of Trendelenburg and the ascending aortic vent removed and these pursestring sutures tied and reinforced. The patient was then weaned from cardiopulmonary bypass with minimal inotropic support. The venous cannula was removed and these pursestring sutures were tied. NATALIE examination demonstrated good ventricular function. There was no significant valvular pathology. Protamine was administered by Anesthesia and following a period of hemodynamic stability, the aortic cannula was removed and these pursestring sutures tied and reinforced. The patient continued to do well and chest irrigated copiously with saline. Meticulous hemostasis was obtained. Hemasorb was placed along the cut edge of the sternum. Once hemostasis was assured, the pericardium was draped over the anterior surface of the heart and tacked into position. Doppler demonstrated good flow through the grafts following protamine administration. Then, chest tubes were placed and sternum reapproximated with eight sternal wires. The clavipectoral fascia and linea alba closed with #1 Stratafix. The subcutaneous tissue was closed and skin closed in subcuticular fashion. Record Of Operation [facility] [id number] [place]. [address] NAME: TATIANNA NGO : 38 STATUS : DIS IN PAT#: [id number] AGE: 75 ADM/REG DATE : 09/06/16 MR#: [id number] REPORT SERV DATE: 09/11/16 DICTATED BY: VELMA MORENO DATE: 09/07/16 REPORT STATUS : Draft TRANSCRIBED BY: WALT DATE: 09/07/16 The patient tolerated the procedure well. There were no complications. Sponge and needle counts were correct. DISPOSITION: The patient was left intubated, sedated, and transported to the Intensive Care Unit in stable condition. JH/WALT Velma Moreno M.D. / [id number] CC: Samuel Harper NP
--- NOTE | ~2016-09-06 | DS ---
Discharge Summary [facility] [address] [place]. [address] NAME: TATIANNA NGO : 38 STATUS : DIS IN PAT#: [id number] AGE: 76 ADM/REG DATE : 09/06/16 MR#: [id number] REPORT SERV DATE: 09/22/16 DICTATED BY: VELMA MORENO DATE: 09/21/16 REPORT STATUS : Draft TRANSCRIBED BY: WALT DATE: 09/21/16 Data Collection from hospitalization DISCHARGE DIAGNOSES: 1. Coronary artery disease. 2. Hypertension. 3. Type 2 diabetes mellitus. 4. Hyperlipidemia. 5. Former smoker. CONSULTATIONS: Jayy Dumont MD PROCEDURES PERFORMED: Coronary artery bypass grafting x4 with left internal mammary artery to the left anterior descending artery, reverse saphenous vein graft placed to the first diagonal, reverse saphenous vein graft placed to the first obtuse marginal, reverse saphenous vein graft placed to the posterior descending artery; endoscopic vein harvest of the saphenous vein from the right leg; and transesophageal echocardiography on 09/06/2016. MEDICATIONS: Aspirin 81 mg daily, Lipitor 40 mg at bedtime, Aricept 10 mg at bedtime, [place] 5/325 one to two tablets every four hours as needed, Prinivil 5 mg daily, Glucophage 500 mg every morning, Lopressor 12.5 mg twice a day, multivitamins one tablet daily, Macrobid 100 mg twice a day, nitroglycerin 0.4 mg sublingually as needed, Prilosec 20 mg daily, and cleanse supplement one tablet daily. CONDITION AT DISCHARGE: Stable. DISPOSITION: The patient was discharged home on a low-sodium, low-cholesterol, cardiac diet with activities as instructed. She would follow up with Sincere Lopez on 10/26/[address] Andrea Miranda on 10/05/2016. HOSPITAL COURSE: This is a 75-year-old female who had presented to the emergency room on 08/30/2016 with chest discomfort while performing physical therapy regarding her neck pain. She had undergone a coronary arteriogram on 09/01/2016, which revealed severe bifurcation stenosis involving the first diagonal and proximal LAD, ljsiiehd-mj-gcpyed distal LAD stenosis, sorqdnuw-hv-pkpzqa ostial and proximal circumflex stenosis, and otbw-ju-bjaetybz right coronary artery stenosis. LMCA showed 30% stenosis, proximal LAD 25% stenosis with first diagonal lesion of 90% stenosis, proximal LAD 85% stenosis, and mid LAD with 60% stenosis. Left circumflex lesion on proximal at 60%, proximal left first obtuse marginal and 60% lesion on the proximal circumflex. There was 45% stenosis on the proximal RCA. The patient said that her fatigue is mainly with activity when she is doing her housework. She takes frequent rest breaks throughout the day. She said she was not having any active chest pain, palpitations, dyspnea with rest, orthopnea or unstable angina. She did have some mild dyspnea on exertion. Treatment options were discussed and it was elected to proceed with surgical intervention. She was admitted to the hospital at this time for further evaluation and treatment. Upon admission, she was taken to the operating room where she underwent the above-mentioned procedure. She tolerated this well, and there were no complications. Postoperatively, she Discharge Summary [address] [place]. [address] NAME: TATIANNA NGO : 38 STATUS : DIS IN PAT#: [id number] AGE: 76 ADM/REG DATE : 09/06/16 MR#: [id number] REPORT SERV DATE: 09/22/16 DICTATED BY: VELMA MORENO DATE: 09/21/16 REPORT STATUS : Draft TRANSCRIBED BY: WALT DATE: 09/21/[address] Jayy Dumont. She was still intubated. An attempt would be made at extubation later in the day if possible. Cardiovascular medications would be resumed once able. On postop day #1, the patient was seen by Dr. Magalie Daley. The patient's hemoglobin A1c was 5.5%. Chest tubes had been removed. It was felt that the patient could likely stop metformin at home. Sliding scale insulin was being given as needed. The patient was currently on an insulin drip. She was up sitting in a chair. She had some leukocytosis as expected. White count was 16.6. She had no edema. Her incisions looked okay. We encouraged her to mobilize. Discharge planning was performed. On 09/08/2016, she looked good. She was up sitting in a chair. She had decreased breath sounds in her lung bases. Chest x-ray showed no pneumothorax. There was some atelectasis in the left base. White count was 20.4. Discharge instructions were given. Blood sugars were controlled without insulin. She was eating well. Discharge planning continued. We encouraged her to use incentive spirometry. On 09/09/2016, she was ambulatory. She was alert and cooperative. She had no edema. She was mobilizing well. Discharge instructions were given. Her blood pressure was controlled. Due to her improved and stable condition, she was discharged home with the above-stated instructions. Information collected by: Negra Villa I submit the above information as my discharge summary. TG/MODL Velma Moreno M.D. / [id number] CC: Samuel Harper DEBORA Vimal Ramjee, MD
[~2016-09-06 05:53] MED LIST: ARICEPT10 PO; ASAB PO; ATEN100 PO; BACDS PO; COZ50 PO; CRESTOR5 MG PO; GLUCPH PO; KLOR-CON M2020 MEQ PO; L20 PO; MACROBID PO; MULTIPLE VIT PO; NORV5 PO; NTG150 SL; PRILO PO; [UNRECOGNIZED DRUG - OTHER] PO
[2016-09-06 12:37] LABS: HEMOGLOBIN 10.3 g/dL (12.0-16.0)
[2016-09-06 12:38] LABS: HEMATOCRIT 30.5 % (36.0-48.0); PLATELET COUNT 223 10/3/uL (150-400)
[2016-09-06 12:45] LABS: INTERNATIONAL NORMAL RATI 1.5 UNITS (-); PARTIAL THROMBO TIME 42.6 SEC (22.5-37.2)
[2016-09-06 12:46] LABS: PROTIME (NOT ORD) 17.9 SEC (12.0-14.5)
[2016-09-06 12:47] LABS: BUN (BLOOD UREA NITROGEN) 9 MG/DL (6-23); CALCIUM, SERUM 8.2 MG/DL (8.5-10.4); CHLORIDE, SERUM 112 MMOL/L (96-112); CO2 (CARBON DIOXIDE) 24 MMOL/L (24-34); CREATININE 0.86 MG/DL (0.55-1.02); GFR AFRICAN AMERICAN 76 ML/MIN (>=60); GFR NON AFRICAN AMERICAN 65 ML/MIN (>=60); POTASSIUM, SERUM 3.4 MMOL/L (3.5-5.3); SODIUM, SERUM 143 MMOL/L (135-148)
[2016-09-06 12:49] LABS: GLUCOSE, SERUM 81 MG/DL (60-99)
[2016-09-06 16:54] LABS: BE (BASE EXCESS) -2.3 MEQ/L (0 +/- 2.5); CARBOXYHEMOGLOBIN 0.2 % (0-3); HEMOBLOGIN CONTENT 10.9 G/DL (12-16); INSTRUMENT SERIAL # 11843; METHEMOGLOBIN 0.7 % (0-3); MODE SIMV; O2 CONTENT 15.7 VOL% (18-24); OPERATOR ID 13715; PCO2 (CO2 TENSION) 36 MMHG (35-45); PO2 (O2 TENSION) 292 MMHG (79-93); SAMPLE Arterial; TIDAL VOLUME 450 ML
[2016-09-06 18:19] LABS: HEMATOCRIT 29.5 % (36.0-48.0); HEMOGLOBIN 10.1 g/dL (12.0-16.0)
[2016-09-06 18:32] LABS: POTASSIUM, SERUM 4.1 MMOL/L (3.5-5.3)
[2016-09-06 18:35] LABS: BE (BASE EXCESS) -3.2 MEQ/L (0 +/- 2.5); CARBOXYHEMOGLOBIN 0.3 % (0-3); DEVICE NC; HCO3 (ACTUAL BICARBONATE) 21.6 MEQ/L (23-27); HEMOBLOGIN CONTENT 10.7 G/DL (12-16); INSTRUMENT SERIAL # 11843; METHEMOGLOBIN 0.6 % (0-3); O2 CONTENT 14.9 VOL% (18-24); OPERATOR ID 13715; PCO2 (CO2 TENSION) 37 MMHG (35-45); PO2 (O2 TENSION) 141 MMHG (79-93); SAMPLE Arterial; pH 7.38 (7.37-7.43)
[2016-09-07 04:25] LABS: BASOPHILS 0.1 %; BASOPHILS ABSOLUTE 0.01 10/3/uL (0.0-0.16); EOSINOPHILS 0.1 %; EOSINOPHILS ABSOLUTE 0.01 10/3/uL (0.0-0.53); HEMOGLOBIN 8.8 g/dL (12.0-16.0); IMMATURE GRANULOCYTES 0.3 %; IMMATURE GRANULOCYTES ABSOLUTE 0.05 10/3/uL (0.0-0.11); LYMPHOCYTES 3.9 %; LYMPHOCYTES ABSOLUTE 0.65 10/3/uL (0.67-4.30); MEAN CORPUS HGB CONC 33.6 g/dL (32.0-36.0); MEAN CORPUSCULAR HEMOGLOB 30.2 pg (26.0-34.0); MEAN PLATELET VOLUME 9.4 fL (9.2-13.0); MONOCYTES 2.6 %; MONOCYTES ABSOLUTE 0.43 10/3/uL (0.21-1.20); NEUTROPHILS ABSOLUTE 15.48 10/3/uL (2.02-8.40); PLATELET COUNT 169 10/3/uL (150-400); RBC DISTRIBUTION WIDTH 13.2 % (12.0-16.0); WHITE BLOOD CELLS 16.6 10/3/uL (4.5-10.5)
[2016-09-07 04:26] LABS: HEMATOCRIT 26.2 % (36.0-48.0); MANUAL DIFF NO %; RED CELL COUNT 2.91 10/6/uL (4.0-5.6)
[2016-09-07 04:40] LABS: BUN (BLOOD UREA NITROGEN) 13 MG/DL (6-23); CALCIUM, SERUM 7.7 MG/DL (8.5-10.4); CHLORIDE, SERUM 115 MMOL/L (96-112); CO2 (CARBON DIOXIDE) 23 MMOL/L (24-34); CREATININE 0.63 MG/DL (0.55-1.02); GFR AFRICAN AMERICAN 100 ML/MIN (>=60); GFR NON AFRICAN AMERICAN 87 ML/MIN (>=60); GLUCOSE, SERUM 89 MG/DL (60-99); POTASSIUM, SERUM 4.1 MMOL/L (3.5-5.3); SODIUM, SERUM 144 MMOL/L (135-148)
[2016-09-08 05:29] LABS: BASOPHILS 0 %; BASOPHILS ABSOLUTE 0.01 10/3/uL (0.0-0.16); EOSINOPHILS 0 %; EOSINOPHILS ABSOLUTE 0.01 10/3/uL (0.0-0.53); HEMOGLOBIN 9.1 g/dL (12.0-16.0); IMMATURE GRANULOCYTES 0.6 %; IMMATURE GRANULOCYTES ABSOLUTE 0.13 10/3/uL (0.0-0.11); LYMPHOCYTES 5.6 %; LYMPHOCYTES ABSOLUTE 1.15 10/3/uL (0.67-4.30); MEAN CORPUS HGB CONC 32.5 g/dL (32.0-36.0); MEAN CORPUSCULAR VOLUME 92.4 fL (80-100); MEAN PLATELET VOLUME 9.8 fL (9.2-13.0); MONOCYTES 5.4 %; MONOCYTES ABSOLUTE 1.11 10/3/uL (0.21-1.20); NEUTROPHILS 88.4 %; NEUTROPHILS ABSOLUTE 17.97 10/3/uL (2.02-8.40); PLATELET COUNT 204 10/3/uL (150-400); RBC DISTRIBUTION WIDTH 13.9 % (12.0-16.0); RED CELL COUNT 3.03 10/6/uL (4.0-5.6); WHITE BLOOD CELLS 20.4 10/3/uL (4.5-10.5)
[2016-09-08 05:35] LABS: MANUAL DIFF NO %
[2016-09-08 05:42] LABS: CALCIUM, SERUM 8.4 MG/DL (8.5-10.4); CHLORIDE, SERUM 108 MMOL/L (96-112); CO2 (CARBON DIOXIDE) 26 MMOL/L (24-34); CREATININE 0.75 MG/DL (0.55-1.02); GFR AFRICAN AMERICAN 89 ML/MIN (>=60); GFR NON AFRICAN AMERICAN 77 ML/MIN (>=60); GLUCOSE, SERUM 102 MG/DL (60-99); SODIUM, SERUM 139 MMOL/L (135-148)
[2016-09-08 05:46] LABS: BUN (BLOOD UREA NITROGEN) 23 MG/DL (6-23); POTASSIUM, SERUM 5.1 MMOL/L (3.5-5.3)
[2016-09-09 05:13] LABS: BASOPHILS 0 %; EOSINOPHILS 0.1 %; EOSINOPHILS ABSOLUTE 0.02 10/3/uL (0.0-0.53); HEMATOCRIT 27.9 % (36.0-48.0); HEMOGLOBIN 9.2 g/dL (12.0-16.0); IMMATURE GRANULOCYTES 0.3 %; IMMATURE GRANULOCYTES ABSOLUTE 0.04 10/3/uL (0.0-0.11); LYMPHOCYTES 7.9 %; LYMPHOCYTES ABSOLUTE 1.08 10/3/uL (0.67-4.30); MEAN CORPUSCULAR HEMOGLOB 29.7 pg (26.0-34.0); MEAN PLATELET VOLUME 9.5 fL (9.2-13.0); MONOCYTES 6.1 %; MONOCYTES ABSOLUTE 0.83 10/3/uL (0.21-1.20); NEUTROPHILS 85.6 %; PLATELET COUNT 192 10/3/uL (150-400); RBC DISTRIBUTION WIDTH 13.6 % (12.0-16.0); WHITE BLOOD CELLS 13.7 10/3/uL (4.5-10.5)
[2016-09-09 05:14] LABS: MANUAL DIFF NO %
[2016-09-09] MEDS ORDERED: LIPITOR40 PO (09:51)
[2016-09-09] MEDS ORDERED: PRIN5 PO (09:52)
[2016-09-09] MEDS ORDERED: LOP25 PO (09:52)
[2016-09-09] MEDS ORDERED: NORCO1 TA1 PO (09:52)
== END 2016-09-09 16:43 | disposition home or self-care (01) | DRG 236 ==
LOC: SDC/OF 05:53 → CVICU 11:30 → 5NO 09-07 12:53
PROVIDERS: Nurse Practitioner Family; Thoracic Surgery (Cardiothoracic Vascular Surgery)
PROC: 021209W Bypass Coronary Artery, Three Arteries from Aorta with Autologous Venous Tissue, Open Approach (ICD-10-PCS; principal; 2016-09-07)
PROC: 02100Z9 Bypass Coronary Artery, One Artery from Left Internal Mammary, Open Approach (ICD-10-PCS; 2016-09-07)
PROC: 06BP4ZZ Excision of Right Saphenous Vein, Percutaneous Endoscopic Approach (ICD-10-PCS; 2016-09-07)
PROC: B246ZZ4 Ultrasonography of Right and Left Heart, Transesophageal (ICD-10-PCS; 2016-09-07)
DX: I25.119 Atherosclerotic heart disease of native coronary artery with unspecified angina pectoris (principal); E11.9 Type 2 diabetes mellitus without complications; I10 Essential (primary) hypertension; E78.5 Hyperlipidemia, unspecified; E66.9 Obesity, unspecified; Z79.84 Long term (current) use of oral hypoglycemic drugs; Z88.2 Allergy status to sulfonamides; Z68.22 Body mass index [BMI] 22.0-22.9, adult
CPT/HCPCS: 36415; 71010; 71020; 80048; 80053; 81001; 82330; 82803; 82805; 82947; 82962; 83540; 83550; 83735; 84132; 84295; 85014; 85018; 85025; 85049; 85347; 85610; 85730; 86850; 86900; 86901; 86920; 87641; 93005; 93312; 93320; 93325; 94002; 94640; 94660; 94770; A9270-GY; C1713; C1769; J0690; J1644; J2150; J2250; J2370; J2405; J2440; J2550; J2720; J2795; J2930; J3010; J3370; J3475; J3480; P9045; P9047